=== PATIENT | female | born 1940 | race African-American/Black ===

== ENCOUNTER 2017-06-12 18:27 | Inpatient (IN) ==
--- NOTE | 2017-06-12 16:47 | History and Physical Update ---
Sedation H&P Update - History and Physical H&P was reviewed, the patient examined and there: are no changes in the patients condition since last H&P was completed. - Dictation Physical: refer to scanned H&P - Sedation Plan for Sedation: moderate Patient Consent: Procedure disscussed with patient and patinet has consented., Risks and benefits were discussed with patient,including infection,, bleeding, injury to surrounding structures, seizure, temporary nerve, Patient understands and accepts potential risks/benefits and agrees to, proceed. ASA Class: IV Airway Assessment: Class III: Soft palate, base of uvula visible
--- NOTE | 2017-06-12 17:45 | Cardiac Catheterization ---
Date of Procedure:: 06/12/17 Pre-op Diagnosis: Bilateral primary branch pulmonary emboli for ekos catheter placement Post-op diagnosis: same Procedure: Description of procedure: Procedure performed: 1: Bilateral ekos catheter placement right and left pulmonary artery Description of procedure: After obtaining informed consent the patient was brought to the [facility] with a right groin was prepped and draped in the usual sterile manner. After local infiltration of anesthetic and intravenous sedation a needle stick was made to the right femoral vein and a 12 Urdu venous sheath with two hemostatic ports was placed in the right femoral vein. Using a angled pigtail catheter and a J- wire the left main pulmonary artery was wired and the wire was extended to a segmental pulmonary artery on the left. This wire was maintained in place while the pigtail catheter was removed from the wire and an infusion catheter was advanced over the wire and positioned with its tip in a distal segmental pulmonary artery. This catheter was then connected to coolant infusion. Next using the other hemostatic access a second J-wire was placed using a angled pigtail catheter and positioned with its tip in a segmental right pulmonary artery. An infusion catheter was advanced over this J-wire and it was placed in the segmental right pulmonary artery. At this point tPA was infused in both the right and left drug ports. Next the ultrasound wires were placed through the coolant sheaths for both the right and left sides. Fluoroscopy confirmed good positioning and coolant was infusing as well as tPA. The patient remained hemodynamically stable and was transferred to the intensive care unit in stable condition. Please see the orders related to drug dosing and infusion sites. There were no immediate complications encountered. Anesthesia: moderate conscious sedation Surgeon / Physician: James Montes Estimated blood loss: minimal Specimens: none sent Condition: critical Disposition: ICU/CCU - Medications / Follow-up
--- NOTE | 2017-06-12 18:05 | Cardiology History & Physical ---
Assessment and Plan (1) Acute pulmonary embolus Status: Acute Assessment and plan: Patient is undergone placement of bilateral infusion catheters and is clinically hemodynamically stable with complaints of left-sided chest pain which I think it is related to pulmonary infarction. She will be watched closely for evidence of hypotension or hemodynamic compromise. She is clinically stable currently. (2) Right ventricular enlargement Status: Acute (3) Atrial fibrillation Status: Acute Assessment and plan: Patient is in atrial fibrillation currently possibly related to pulmonary thromboembolic disease. She will be monitored related to her rate. (4) Rheumatoid arthritis Status: Acute (5) Systemic hypertension Status: Acute (6) Pericardial effusion without cardiac tamponade Status: Acute History of Present Illness Chief complaint: Right ventricular enlargement pulmonary thromboembolic disease by CT History of present illness: Ms. Hartley is a 76 year old female who has a history of hypertension dyslipidemia hypothyroidism history of onset of dyspnea. She had just started colchicine and said it was making her sick she came in with low oxygen saturations. She was noted to have a high d-dimer and was taken to CT scan where it showed bilateral large segmental pulmonary thromboembolic disease. She was referred here for TNKase infusion with ekos catheter. She has no prior history of myocardial infarction or jarrett congestive heart failure. She has rheumatoid arthritis and is being seen by human resources representative in [place]. She does not give me a history of syncope or palpitations. I am not certain as to whether she has chronic atrial fibrillation but she is in atrial fibrillation on presentation here. He has had no recent fever chills cough or sputum. She is admitted now post echoes catheter placement for close monitoring. I have explained our treatment plans with the patient and with her family. Cardiology Physical Exam - Constitutional Exam: Physical examination: General: The patient is awake and alert complaining of left-sided chest pain which is pleuritic in nature. She is oriented -3. Mood and affect are normal. HEENT: Normocephalic, sclera are clear there are no lid xanthelasmas noted. Oral mucosa is free of cyanosis or pallor. Neck: The neck is supple without JVD. Carotid upstrokes are normal volume and amplitude. There is no audible bruit. There is no palpable thyroid. Trachea is midline. Chest: Lungs: The patient is comfortable at rest without intercostal retractions or abdominal breathing. There are decreased breath sounds at the bases bilaterally worse on the left there are no adventitial sounds rales rubs rhonchi or wheezes noted. Cardiovascular: The PMI is nondisplaced. No palpable thrill S3 or S4. There is a regular rate and rhythm with no murmur rub or gallop noted. Dorsalis pedis posterior tibial are 1+ and equal and femoral pulses are 2+ and equal bilaterally. Abdomen: Abdomen is soft and nontender with normal active bowel sounds. There is no palpable mass or organomegaly noted. There is no midline bruit. Extremities exam: There is no cyanosis clubbing or edema. Skin: Skin is warm and dry without ecchymosis or urticaria or skin rash. There are no palpable nodules. Musculoskeletal: There is no kyphosis or scoliosis noted.
[~2017-06-12 18:27] MED LIST: ALTEPLASE 12 MG in SODIUM CHLORIDE 0.9% 240 ML IV SCH; ALTEPLASE 2 MG VIAL ONE; ENOXAPARIN 60 MG/0.6 ML SYRINGE ONE; HEPARIN DRIP 25,000 UNITS/500 ML PREMIX IV SCH; SODIUM CHLORIDE 0.9% 1,000 ML IV SCH; fentaNYL 100 MCG/2 ML VIAL ONE
[2017-06-12 19:27] LABS: Basophils % 0.4 % (0.0-0.8); Hematocrit 36.6 VOL% (35.7-47.0); Hemoglobin 11.8 GM/DL (12.0-16.0); Immature Granulocytes % 0.3 %; Immature Granulocytes Absolute 0.02 #; Lymphocytes % 42.1 % (21.3-54.2); Mean Corpuscular HGB Conc 32.2 GM/DL (32-36); Mean Corpuscular Hemoglobin 26 PG (27-34); Mean Corpuscular Volume 81.3 FL (87-102); Mean Platelet Volume 9.4 FL (9.6-12.0); Monocytes # 0.5 10*3/uL (0.11-0.8); Monocytes % 6.5 % (1.7-12.7); Neutrophils # 3.6 10*3/uL (1.4-7.4); Neutrophils % 50.7 % (38.7-73.9); Platelet Count 182 T/CUMM (130-400); Red Cell Distribution Width 15.4 % (9.3-17.3); White Blood Count 7.1 T/CUMM (4-12)
[2017-06-12 19:40] LABS: INR 1.2; PT Patient Result 12.7 SECS; Partial Thromboplastin Time 37.3 SECS (0-40)
[2017-06-12] MEDS: ONDANSETRON 4 MG/2 ML VIAL IV PRN (19:54)
[2017-06-12] MEDS: MORPHINE 2 MG/1 ML SYRINGE IV PRN (19:54)
[2017-06-12 21:03] LABS: Apearance,Urine CLEAR (Clear); Bacteria,Urine Occasional /HPF (Few); Bilirubin,Urine Negative (Negative); Blood, Urine Negative (Negative); Glucose,Urine (UA) Negative (Negative); Ketones,Urine Negative (Negative); Nitrite,Urine Negative (Negative); Protein,Urine Negative; RBC,Urine 4 /HPF (0-4); Squamous Epithelial Cell,Urine Occasional /HPF (0-10); Urine Color Yellow (Yellow); Urine Specific Gravity 1.031 (1.001-1.035); Urine Urobilinogen < 2.0 EU/DL (0.2-1.0); WBC,Urine <1 /HPF (0-6)
[2017-06-13 03:49] LABS: Basophils % 0.4 % (0.0-0.8); Hematocrit 33.4 VOL% (35.7-47.0); Hemoglobin 10.7 GM/DL (12.0-16.0); Immature Granulocytes % 0.4 %; Immature Granulocytes Absolute 0.03 #; Lymphocytes # 3.3 10*3/uL (1.4-4.0); Lymphocytes % 46.5 % (21.3-54.2); Mean Corpuscular Hemoglobin 26 PG (27-34); Mean Corpuscular Volume 81.7 FL (87-102); Mean Platelet Volume 9.4 FL (9.6-12.0); Monocytes # 0.5 10*3/uL (0.11-0.8); Monocytes % 6.3 % (1.7-12.7); Neutrophils # 3.3 10*3/uL (1.4-7.4); Neutrophils % 46.4 % (38.7-73.9); Platelet Count 173 T/CUMM (130-400); Red Blood Count 4.09 MC/CUMM (3.8-5.5); Red Cell Distribution Width 15.2 % (9.3-17.3); White Blood Count 7.2 T/CUMM (4-12)
[2017-06-13 04:26] LABS: Albumin 2.5 G/DL (3.4-5.0); Bilirubin,Total 0.9 MG/DL (0.2-1.0); Calcium 8.4 MG/DL (8.5-10.1); Osmolality,Calculated 278.5 MOS/KG (273-304); Potassium 3.7 MMOL/L (3.5-5.1); Total Protein 5.9 G/DL (6.4-8.3)
[2017-06-13 04:54] LABS: INR 1.2; PT Patient Result 12.8 SECS
[2017-06-13] MEDS: MORPHINE 2 MG/1 ML SYRINGE IV PRN ×2 (06:05→09:06)
[2017-06-13 07:10] LABS: Partial Thromboplastin Time 79.8 SECS (0-40)
--- NOTE | 2017-06-13 07:22 | EKG Report ---
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
--- NOTE | 2017-06-13 09:00 | Cardiology Progress Note ---
<Luis E Haley E - Last Filed: 06/13/17 09:00> Cardiology - PN: Subj Interval history: LUIS E TO COMPLETE Ms. Hartley is a 76 year old female who has a history of hypertension dyslipidemia hypothyroidism history of onset of dyspnea. She had just started colchicine and said it was making her sick she came in with low oxygen saturations. She was noted to have a high d-dimer and was taken to CT scan where it showed bilateral large segmental pulmonary thromboembolic disease. She was referred here for TNKase infusion with ekos catheter. She has no prior history of myocardial infarction or jarrett congestive heart failure. 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 She does not give me a history of syncope or palpitations. I am not certain as to whether she has chronic atrial fibrillation but she is in atrial fibrillation on presentation here. He has had no recent fever chills cough or sputum. She is admitted now post echoes catheter placement for close monitoring. I have explained our treatment plans with the patient and with her family.Procedure performed: 1: Bilateral ekos catheter placement right and left pulmonary artery Exam (Progress Note) - Constitutional Vitals: Period Temp Pulse Resp BP Sys/Escalera Pulse Ox Last 24 Hr 97.0 F-97.5 F 70-99 13-23 96-142/57-83 95-100 Result/EKG - Labs CBC & BMP: 06/13/17 03:43 06/13/17 03:43 Labs: Laboratory Results - last 24 hr 06/12/17 06/12/17 06/12/17 19:18 19:18 20:30 WBC 7.1 RBC 4.50 Hgb 11.8 L Hct 36.6 MCV 81.3 L MCH 26 L MCHC 32.2 RDW 15.4 Plt Count 182 MPV 9.4 L Neut % (Auto) 50.7 Lymph % (Auto) 42.1 [place] % (Auto) 6.5 Eos % (Auto) 0.0 Baso % (Auto) 0.4 Neut # (Auto) 3.6 Lymph # (Auto) 3.0 [place] # (Auto) 0.5 Eos # (Auto) 0.0 Baso # (Auto) 0.0 Immature Gran % 0.3 Nucleated RBC % 0.0 Immature Gran # 0.02 Nucleated RBCs # 0.00 Immature Plt Fraction 0.0 INR 1.2 PT Patient/Control Mix 12.7 Fibrinogen 319 Circ Anticoag PTT 37.3 Sodium Potassium Chloride Carbon Dioxide Anion Gap BUN Creatinine GFR Calculation BUN/Creatinine Ratio Glucose Calculated Osmolality Calcium Total Bilirubin AST ALT Alkaline Phosphatase Total Protein Albumin Globulin Albumin/Globulin Ratio Urine Color Yellow Urine Appearance Clear Urine pH 6.0 Ur Specific [place] 1.031 Urine Protein Negative Urine Glucose (UA) Negative Urine Ketones Negative Urine Blood Negative Urine Nitrate Negative Urine Bilirubin Negative Urine Urobilinogen < 2.0 H Urine Leukocytes Negative Urine RBC 4 Urine WBC <1 Ur Squamous Epith Cells Occasional Urine Bacteria Occasional Ur Culture Indicated? Not indicated 06/13/17 06/13/17 06/13/17 03:43 03:43 03:43 WBC 7.2 RBC 4.09 Hgb 10.7 L Hct 33.4 L MCV 81.7 L MCH 26 L MCHC 32.0 RDW 15.2 Plt Count 173 MPV 9.4 L Neut % (Auto) 46.4 Lymph % (Auto) 46.5 [place] % (Auto) 6.3 Eos % (Auto) 0.0 Baso % (Auto) 0.4 Neut # (Auto) 3.3 Lymph # (Auto) 3.3 [place] # (Auto) 0.5 Eos # (Auto) 0.0 Baso # (Auto) 0.0 Immature Gran % 0.4 Nucleated RBC % 0.0 Immature Gran # 0.03 Nucleated RBCs # 0.00 Immature Plt Fraction 0.0 INR 1.2 PT Patient/Control Mix 12.8 Fibrinogen Circ Anticoag PTT Sodium 139 Potassium 3.7 Chloride 103 Carbon Dioxide 29 Anion Gap 10.7 BUN 16 Creatinine 0.80 GFR Calculation 105 BUN/Creatinine Ratio 20.00 Glucose 109 H Calculated Osmolality 278.5 Calcium 8.4 L Total Bilirubin 0.90 AST 23 ALT 29 Alkaline Phosphatase 76 Total Protein 5.9 L Albumin 2.5 L Globulin 3.4 Albumin/Globulin Ratio 0.7 L Urine Color Urine Appearance Urine pH Ur Specific [place] Urine Protein Urine Glucose (UA) Urine Ketones Urine Blood Urine Nitrate Urine Bilirubin Urine Urobilinogen Urine Leukocytes Urine RBC Urine WBC Ur Squamous Epith Cells Urine Bacteria Ur Culture Indicated? 06/13/17 06:43 WBC RBC Hgb Hct MCV MCH MCHC RDW Plt Count MPV Neut % (Auto) Lymph % (Auto) [place] % (Auto) Eos % (Auto) Baso % (Auto) Neut # (Auto) Lymph # (Auto) [place] # (Auto) Eos # (Auto) Baso # (Auto) Immature Gran % Nucleated RBC % Immature Gran # Nucleated RBCs # Immature Plt Fraction INR PT Patient/Control Mix Fibrinogen 326 Circ Anticoag PTT 79.8 H D Sodium Potassium Chloride Carbon Dioxide Anion Gap BUN Creatinine GFR Calculation BUN/Creatinine Ratio Glucose Calculated Osmolality Calcium Total Bilirubin AST ALT Alkaline Phosphatase Total Protein Albumin Globulin Albumin/Globulin Ratio Urine Color Urine Appearance Urine pH Ur Specific [place] Urine Protein Urine Glucose (UA) Urine Ketones Urine Blood Urine Nitrate Urine Bilirubin Urine Urobilinogen Urine Leukocytes Urine RBC Urine WBC Ur Squamous Epith Cells Urine Bacteria Ur Culture Indicated? <James Montes - Last Filed: 06/13/17 11:35> Assessment and Plan (1) Acute pulmonary embolus Status: Acute Current Visit: Yes (2) Right ventricular enlargement Status: Acute Current Visit: Yes (3) Atrial fibrillation Status: Acute Current Visit: Yes (4) Rheumatoid arthritis Status: Acute Current Visit: Yes (5) Systemic hypertension Status: Acute Current Visit: Yes (6) Pericardial effusion without cardiac tamponade Status: Acute Current Visit: Yes Cardiology - PN: Subj Interval history: Patient is hemodynamic with stable doing well without any problems. Her hematocrit is stable. She has had some minimal ooze from the catheter entry site but is otherwise without complaints or problems today. Her blood pressure is reasonable although still on the high side and we will adjust her meds. I have discussed in detail the particulars of this case and I have examined the patient and reviewed the patient's chart both current and old. I was directly involved in the patient's evaluation and management and I completely agree with Luis E Haley NP regarding this patient's evaluation and treatment plan. Exam (Progress Note) - Constitutional Vitals: Period Temp Pulse Resp BP Sys/Escalera Pulse Ox Last 24 Hr 97.0 F-97.9 F 63-99 13-23 96-150/57-83 95-100 Result/EKG - Labs CBC & BMP: 06/13/17 03:43 06/13/17 03:43 Labs: Laboratory Results - last 24 hr 06/12/17 06/12/17 06/12/17 19:18 19:18 20:30 WBC 7.1 RBC 4.50 Hgb 11.8 L Hct 36.6 MCV 81.3 L MCH 26 L MCHC 32.2 RDW 15.4 Plt Count 182 MPV 9.4 L Neut % (Auto) 50.7 Lymph % (Auto) 42.1 [place] % (Auto) 6.5 Eos % (Auto) 0.0 Baso % (Auto) 0.4 Neut # (Auto) 3.6 Lymph # (Auto) 3.0 [place] # (Auto) 0.5 Eos # (Auto) 0.0 Baso # (Auto) 0.0 Immature Gran % 0.3 Nucleated RBC % 0.0 Immature Gran # 0.02 Nucleated RBCs # 0.00 Immature Plt Fraction 0.0 INR 1.2 PT Patient/Control Mix 12.7 Fibrinogen 319 Circ Anticoag PTT 37.3 Sodium Potassium Chloride Carbon Dioxide Anion Gap BUN Creatinine GFR Calculation BUN/Creatinine Ratio Glucose Calculated Osmolality Calcium Total Bilirubin AST ALT Alkaline Phosphatase Total Protein Albumin Globulin Albumin/Globulin Ratio Urine Color Yellow Urine Appearance Clear Urine pH 6.0 Ur Specific [place] 1.031 Urine Protein Negative Urine Glucose (UA) Negative Urine Ketones Negative Urine Blood Negative Urine Nitrate Negative Urine Bilirubin Negative Urine Urobilinogen < 2.0 H Urine Leukocytes Negative Urine RBC 4 Urine WBC <1 Ur Squamous Epith Cells Occasional Urine Bacteria Occasional Ur Culture Indicated? Not indicated 06/13/17 06/13/17 06/13/17 03:43 03:43 03:43 WBC 7.2 RBC 4.09 Hgb 10.7 L Hct 33.4 L MCV 81.7 L MCH 26 L MCHC 32.0 RDW 15.2 Plt Count 173 MPV 9.4 L Neut % (Auto) 46.4 Lymph % (Auto) 46.5 [place] % (Auto) 6.3 Eos % (Auto) 0.0 Baso % (Auto) 0.4 Neut # (Auto) 3.3 Lymph # (Auto) 3.3 [place] # (Auto) 0.5 Eos # (Auto) 0.0 Baso # (Auto) 0.0 Immature Gran % 0.4 Nucleated RBC % 0.0 Immature Gran # 0.03 Nucleated RBCs # 0.00 Immature Plt Fraction 0.0 INR 1.2 PT Patient/Control Mix 12.8 Fibrinogen Circ Anticoag PTT Sodium 139 Potassium 3.7 Chloride 103 Carbon Dioxide 29 Anion Gap 10.7 BUN 16 Creatinine 0.80 GFR Calculation 105 BUN/Creatinine Ratio 20.00 Glucose 109 H Calculated Osmolality 278.5 Calcium 8.4 L Total Bilirubin 0.90 AST 23 ALT 29 Alkaline Phosphatase 76 Total Protein 5.9 L Albumin 2.5 L Globulin 3.4 Albumin/Globulin Ratio 0.7 L Urine Color Urine Appearance Urine pH Ur Specific [place] Urine Protein Urine Glucose (UA) Urine Ketones Urine Blood Urine Nitrate Urine Bilirubin Urine Urobilinogen Urine Leukocytes Urine RBC Urine WBC Ur Squamous Epith Cells Urine Bacteria Ur Culture Indicated? 06/13/17 06:43 WBC RBC Hgb Hct MCV MCH MCHC RDW Plt Count MPV Neut % (Auto) Lymph % (Auto) [place] % (Auto) Eos % (Auto) Baso % (Auto) Neut # (Auto) Lymph # (Auto) [place] # (Auto) Eos # (Auto) Baso # (Auto) Immature Gran % Nucleated RBC % Immature Gran # Nucleated RBCs # Immature Plt Fraction INR PT Patient/Control Mix Fibrinogen 326 Circ Anticoag PTT 79.8 H D Sodium Potassium Chloride Carbon Dioxide Anion Gap BUN Creatinine GFR Calculation BUN/Creatinine Ratio Glucose Calculated Osmolality Calcium Total Bilirubin AST ALT Alkaline Phosphatase Total Protein Albumin Globulin Albumin/Globulin Ratio Urine Color Urine Appearance Urine pH Ur Specific [place] Urine Protein Urine Glucose (UA) Urine Ketones Urine Blood Urine Nitrate Urine Bilirubin Urine Urobilinogen Urine Leukocytes Urine RBC Urine WBC Ur Squamous Epith Cells Urine Bacteria Ur Culture Indicated?
[2017-06-13] MEDS: RIVAROXABAN 15 MG TABLET PO SCH ×2 (09:06→17:05)
--- NOTE | 2017-06-13 11:36 | Event Note ---
Ekos catheters pulled from the 12 [place] venous sheath without difficulty. No rhythm issues or complaints of pain post procedure noted. Venous sheath to be pulled within the hour.
[2017-06-13] MEDS ORDERED: BISACODYL 5 MG TABLET PO ONE (16:49)
[2017-06-13] MEDS: VALSARTAN 80 MG TABLET PO SCH (17:05)
[2017-06-13] MEDS: PANTOPRAZOLE 40 MG TABLET PO SCH (17:05)
[2017-06-13] MEDS: hydroCHLOROthiazide 25 MG TABLET PO SCH (17:05)
[2017-06-13] MEDS: ONDANSETRON 4 MG/2 ML VIAL IV PRN (17:34)
[2017-06-13] MEDS: SIMVASTATIN 40 MG TABLET PO SCH (19:21)
[2017-06-13] MEDS: CETIRIZINE 10 MG TABLET PO SCH (20:17)
[2017-06-14 04:15] LABS: Basophils % 0.3 % (0.0-0.8); Hematocrit 32.9 VOL% (35.7-47.0); Hemoglobin 10.4 GM/DL (12.0-16.0); Immature Granulocytes % 0.5 %; Immature Granulocytes Absolute 0.04 #; Lymphocytes # 1.8 10*3/uL (1.4-4.0); Lymphocytes % 23.2 % (21.3-54.2); Mean Corpuscular HGB Conc 31.6 GM/DL (32-36); Mean Corpuscular Hemoglobin 26 PG (27-34); Mean Corpuscular Volume 82.7 FL (87-102); Mean Platelet Volume 9.5 FL (9.6-12.0); Monocytes # 0.7 10*3/uL (0.11-0.8); Monocytes % 8.3 % (1.7-12.7); Neutrophils # 5.3 10*3/uL (1.4-7.4); Neutrophils % 67.7 % (38.7-73.9); Platelet Count 167 T/CUMM (130-400); Red Blood Count 3.98 MC/CUMM (3.8-5.5); Red Cell Distribution Width 15.2 % (9.3-17.3); White Blood Count 7.8 T/CUMM (4-12)
[2017-06-14 04:41] LABS: Calcium 8.3 MG/DL (8.5-10.1); Magnesium 1.8 MG/DL (1.8-2.4); Osmolality,Calculated 268.2 MOS/KG (273-304); Potassium 3.6 MMOL/L (3.5-5.1)
--- NOTE | 2017-06-14 07:30 | EKG Report ---
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
[2017-06-14] MEDS: RIVAROXABAN 15 MG TABLET PO SCH ×2 (08:38→16:40)
[2017-06-14] MEDS: POTASSIUM CHLORIDE 8 MEQ CAPSULE PO SCH (08:38)
[2017-06-14] MEDS: hydroCHLOROthiazide 25 MG TABLET PO SCH (08:38)
[2017-06-14] MEDS: VALSARTAN 80 MG TABLET PO SCH (08:39)
[2017-06-14] MEDS: LEVOTHYROXINE 50 MCG TABLET PO SCH (08:39)
[2017-06-14] MEDS: DOXAZOSIN 4 MG TABLET PO SCH (08:39)
[2017-06-14] MEDS: MULTIVITAMIN (CENTRUM) TABLET PO SCH (08:39)
[2017-06-14] MEDS: PANTOPRAZOLE 40 MG TABLET PO SCH (08:39)
[2017-06-14] MEDS: CETIRIZINE 10 MG TABLET PO SCH ×3 (08:39→21:48)
--- NOTE | 2017-06-14 09:22 | Cardiology Progress Note ---
<Kelsie Haley E - Last Filed: 06/14/17 09:05> Assessment and Plan - Time spent with patient Time spent with patient: Greater than 30 minutes (1) Acute pulmonary embolus Status: Acute Assessment and plan: SEE PLAN OF CARE LISTED BELOW Current Visit: Yes (2) Right ventricular enlargement Status: Acute Assessment and plan: SEE PLAN OF CARE LISTED BELOW Current Visit: Yes (3) Atrial fibrillation Status: Acute Assessment and plan: SEE PLAN OF CARE LISTED BELOW Current Visit: Yes Qualifiers: Atrial fibrillation type: unspecified Qualified Code(s): I48.91 - Unspecified atrial fibrillation (4) Rheumatoid arthritis Status: Chronic Assessment and plan: SEE PLAN OF CARE LISTED BELOW Current Visit: Yes (5) Systemic hypertension Status: Chronic Assessment and plan: SEE PLAN OF CARE LISTED BELOW Current Visit: Yes (6) Dyslipidemia Status: Chronic Assessment and plan: SEE PLAN OF CARE LISTED BELOW Current Visit: Yes Cardiology - PN: Subj 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 Hartley, 76BF, arrived June 12, 2017 in transfer for treatment of bilateral large segmental pulmonary thromboembolic disease. She underwent emergent TNKase infusion with EKOs catheter. She tolerated the procedure well and without complication and has been housed in CCU in stable condition. Patient previously underwent Lexiscan stress testing at [facility] September 12, 2013 and received favorable results. No known prior history of coronary artery disease. JUNE 14, 2017: She has been doing well overnight. She is very thankful. Patient remains in atrial fibrillation, suspect this may be a new diagnosis but she is uncertain. Echocardiogram is pending. Vital signs are stable. At this time, she is doing well on Xarelto, labs stable. Patient would like to have her catheter removed and I think this is reasonable. Transfer to telemetry, have physical therapy work with her. Hopefully, she will be ready for discharge possibly tomorrow. Will further discuss with Dr. Montes and await additional recommendations. ASSESSMENT/PLAN: 1. ACUTE PULONARY EMBOLISM - now S/P EKOS, on Xarelto. Labs are stable. Overall she is feeling much better. 2. HYPERTENSION - continue with Diovan. Will add low-dose beta-andres as her heart rate has been varying from 70s to low 100s 3. DYSLIPIDEMIA - fasting lipid profile pending. Continue Simvastatin. 4. ATRIAL FIBRILLATION - uncertain if this is a new diagnosis or chronic condition. However, she is on Xarelto for stroke prevention now. Adding low- dose beta-andres today. 5. RIGHT VENTRICULAR ENLARGEMENT - stable 6. RHEUMATOID ARTHRITIS - continue current plan of care. Exam (Progress Note) - Constitutional Vitals: Period Temp Pulse Resp BP Sys/Escalera Pulse Ox Last 24 Hr 97.2 F-97.9 F 53-101 15-22 108-184/55-83 92-99 Exam: General: [Appears well with no apparent distress.] [Pleasant and cooperative. ] [Appears comfortable.] HEENT: [Bilateral arcus, normocephalic, atraumatic. Mucous membranes moist. No jaundice noted. Conjunctiva moist and clear, sclerae anicteric] Neck: No obvious JVD/HJR, no thyromegaly or lymphadenopathy noted. No carotid bruit appreciated Cardiac: [Irregularly irregular rhythm, controlled rate] [No murmur rub or gallop.] Lungs: [Clear to auscultation without accessory muscle use to assist the respiratory pattern.] Using oxygen intermittently Abdomen: Soft, bowel sounds normoactive. Nontender and nondistended. No abdominal bruit or thrill noted. No masses noted. Musculoskeletal: No fluid collection. Decreased range of motion is noted. Extremities: Right groin soft, free of hematoma or bruit. No clubbing, cyanosis noted. [ No edema noted.] Upper extremity pulses 2+. Lower extremity pulses 2+. Capillary refill less than 3 seconds. Skin: No unusual lesions or rashes. No skin breakdown appreciated. Neuro: Awake, alert and oriented 3. Moves all extremities well without hemiparesis or paralysis. No essential tremor is appreciated. Result/EKG - Labs CBC & BMP: 06/14/17 03:49 06/14/17 03:49 Lab Results: I have reviewed the past 24 hour labs Labs: Laboratory Results - last 24 hr 06/13/17 06/14/17 06/14/17 18:10 03:49 03:49 WBC 7.8 RBC 3.98 Hgb 10.4 L Hct 32.9 L MCV 82.7 L MCH 26 L MCHC 31.6 L RDW 15.2 Plt Count 167 MPV 9.5 L Neut % (Auto) 67.7 Lymph % (Auto) 23.2 [place] % (Auto) 8.3 Eos % (Auto) 0.0 Baso % (Auto) 0.3 Neut # (Auto) 5.3 Lymph # (Auto) 1.8 [place] # (Auto) 0.7 Eos # (Auto) 0.0 Baso # (Auto) 0.0 Immature Gran % 0.5 Nucleated RBC % 0.0 Immature Gran # 0.04 Nucleated RBCs # 0.00 Immature Plt Fraction 0.0 Fibrinogen 394 Circ Anticoag PTT 28.0 D Sodium 134 L Potassium 3.6 Chloride 97 L Carbon Dioxide 34 H Anion Gap 6.6 BUN 13 Creatinine 0.70 GFR Calculation 124 BUN/Creatinine Ratio 18.00 Glucose 114 H Calculated Osmolality 268.2 L Calcium 8.3 L Magnesium 1.8 06/14/17 06:40 WBC RBC Hgb Hct MCV MCH MCHC RDW Plt Count MPV Neut % (Auto) Lymph % (Auto) [place] % (Auto) Eos % (Auto) Baso % (Auto) Neut # (Auto) Lymph # (Auto) [place] # (Auto) Eos # (Auto) Baso # (Auto) Immature Gran % Nucleated RBC % Immature Gran # Nucleated RBCs # Immature Plt Fraction Fibrinogen 416 H Circ Anticoag PTT 37.0 D Sodium Potassium Chloride Carbon Dioxide Anion Gap BUN Creatinine GFR Calculation BUN/Creatinine Ratio Glucose Calculated Osmolality Calcium Magnesium - EKG EKG results: interpreted by me EKG shows: atrial fibrillation <James Montes - Last Filed: 06/14/17 13:51> Assessment and Plan (1) Acute pulmonary embolus Status: Acute Current Visit: Yes (2) Right ventricular enlargement Status: Acute Current Visit: Yes (3) Atrial fibrillation Status: Acute Current Visit: Yes Qualifiers: Atrial fibrillation type: unspecified Qualified Code(s): I48.91 - Unspecified atrial fibrillation (4) Rheumatoid arthritis Status: Chronic Current Visit: Yes (5) Systemic hypertension Status: Chronic Current Visit: Yes (6) Pericardial effusion without cardiac tamponade Status: Acute Current Visit: Yes Cardiology - PN: Subj Interval history: This patient has a history of bilateral pulmonary thromboembolic disease and is done well. Her echo is for review. My plan will be to discharge her home tomorrow. We are trying to increase her activities through today. I have discussed in detail the particulars of this case and I have examined the patient and reviewed the patient's chart both current and old. I was directly involved in the patient's evaluation and management and I completely agree with Kelsie Haley NP regarding this patient's evaluation and treatment plan. Exam (Progress Note) - Constitutional Vitals: Period Temp Pulse Resp BP Sys/Escalera Pulse Ox Last 24 Hr 97.2 F-97.8 F 53-101 15- 101-184/54-83 92-99 Result/EKG - Labs CBC & BMP: 06/14/17 03:49 06/14/17 03:49 Labs: Laboratory Results - last 24 hr 06/13/17 06/14/17 06/14/17 18:10 03:49 03:49 WBC 7.8 RBC 3.98 Hgb 10.4 L Hct 32.9 L MCV 82.7 L MCH 26 L MCHC 31.6 L RDW 15.2 Plt Count 167 MPV 9.5 L Neut % (Auto) 67.7 Lymph % (Auto) 23.2 [place] % (Auto) 8.3 Eos % (Auto) 0.0 Baso % (Auto) 0.3 Neut # (Auto) 5.3 Lymph # (Auto) 1.8 [place] # (Auto) 0.7 Eos # (Auto) 0.0 Baso # (Auto) 0.0 Immature Gran % 0.5 Nucleated RBC % 0.0 Immature Gran # 0.04 Nucleated RBCs # 0.00 Immature Plt Fraction 0.0 Fibrinogen 394 Circ Anticoag PTT 28.0 D Sodium 134 L Potassium 3.6 Chloride 97 L Carbon Dioxide 34 H Anion Gap 6.6 BUN 13 Creatinine 0.70 GFR Calculation 124 BUN/Creatinine Ratio 18.00 Glucose 114 H Calculated Osmolality 268.2 L Calcium 8.3 L Magnesium 1.8 Triglycerides Cholesterol LDL Cholesterol VLDL Cholesterol HDL Cholesterol Heart Disease Risk Ratio 06/14/17 06/14/17 03:49 06:40 WBC RBC Hgb Hct MCV MCH MCHC RDW Plt Count MPV Neut % (Auto) Lymph % (Auto) [place] % (Auto) Eos % (Auto) Baso % (Auto) Neut # (Auto) Lymph # (Auto) [place] # (Auto) Eos # (Auto) Baso # (Auto) Immature Gran % Nucleated RBC % Immature Gran # Nucleated RBCs # Immature Plt Fraction Fibrinogen 416 H Circ Anticoag PTT 37.0 D Sodium Potassium Chloride Carbon Dioxide Anion Gap BUN Creatinine GFR Calculation BUN/Creatinine Ratio Glucose Calculated Osmolality Calcium Magnesium Triglycerides 60 Cholesterol 123 LDL Cholesterol 57.0 VLDL Cholesterol 12.0 HDL Cholesterol 56 Heart Disease Risk Ratio 2.20
[2017-06-14 09:34] LABS: Risk Ratio 2.2
[2017-06-14] MEDS: CARVEDILOL 3.125 MG TABLET PO SCH ×2 (09:42→21:49)
[2017-06-14] MEDS ORDERED: SKIN HEALING OINT (AQUAPHOR) 50 GM TUBE TOP PRN (10:54)
--- NOTE | 2017-06-14 13:01 | Ultrasound Report ---
US venous doppler LE BI Indication: Recent PE. Comparison: None. Technique: Grayscale, spectral, and color Doppler interrogation of the bilateral lower extremity veins was performed. Augmentation and compression was performed. Findings: Grayscale, color Doppler, and pulsed Doppler evaluation of the veins of the bilateral lower extremity demonstrates no evidence of deep venous thrombosis. Popliteal cyst demonstrated on the right measuring up to 3.1 x 1.8 x 1.0 cm. IMPRESSION: No evidence of deep venous thrombosis in either lower extremity. PROCEDURE INTERPRETED AT [facility] DEPARTMENT OF RADIOLOGY Final Report Signed by: Dr Lester Lopez
--- NOTE | 2017-06-14 14:13 | ECHO Report ---
Dipti Hartley Exam Date: 06/14/2017 08:58 Referring Physician: Technologist: Juana Hart Age: 76 Ht (in): 69 Wt (lb): 128 Gender: F Exam Location: [facility] Echo Indications: acute pulmonary embolus, s/p EKOS, A fib, arthritis, HTN, R vent enlargement, R/O pericardial eff. BP: 126 / 61 HR: 71 Rhythm: Sinus Technical Quality: Good IMPRESSIONS Normal left ventricular cavity size. Left ventricular ejection fraction is estimated at 60 -65 %. Mildly increased right ventricular size. Moderate - severely increased right atrial size. Normal left atrial size. Mildly thickened mitral valve with mild mitral regurgitation. Mild aortic sclerois without stenosis. Trace aortic valve regurgitation. Morphologically normal tricuspid valve. Trace tricuspid valve regurgitation. Tricuspid regurgitation velocities suggest a PAP of 30.5 mmHg + RAP. Morphologically normal pulmonic valve. No pericardial effusion. Normal size aortic root and proximal ascending aorta. MEASUREMENTS (Male / Female) Normal Values 2D ECHO LV Diastolic Diameter PLAX 4.2 cm 4.2 - 5.9 / 3.9 - 5.3 cm LV Systolic Diameter PLAX 2.5 cm LV Fractional Shortening PLAX 41.1 % IVS Diastolic Thickness 1.0 cm 0.6 - 1.0 / 0.6 - 0.9 cm LVPW Diastolic Thickness 1.2 cm 0.6 - 1.0 / 0.6 - 0.9 cm RV Internal Dim ED PLAX 3.0 cm Aortic Root Diameter 3.0 cm LA Systolic Diameter LX 3.1 cm 3.0 - 4.0 / 2.7 - 3.8 cm DOPPLER TR Peak Velocity 276.0 cm/s TR Peak Gradient 30.5 mmHg FINDINGS Left Ventricle Normal left ventricular cavity size.left ventricular ejection fraction is estimated at 60 -65 %. Right Ventricle Mildly increased right ventricular size. Right Atrium Moderate - severely increased right atrial size. Left Atrium Normal left atrial size. Mitral Valve Mildly thickened mitral valve with mild mitral regurgitation. Aortic Valve Mild aortic sclerois without stenosis. Trace aortic valve regurgitation. Tricuspid Valve Morphologically normal tricuspid valve. Trace tricuspid valve regurgitation. Tricuspid regurgitation velocities suggest a PAP of 30.5 mmHg + RAP. Pulmonic Valve Morphologically normal pulmonic valve. Pericardium No pericardial effusion. Aorta Normal size aortic root and proximal ascending aorta. James Montes MD (Electronically Signed) Final Date: 14 June 2017 14:12
[2017-06-14] MEDS: SIMVASTATIN 40 MG TABLET PO SCH (18:01)
[2017-06-14 18:08] LABS: Partial Thromboplastin Time 36.9 SECS (0-40)
[2017-06-15] MEDS: MORPHINE 2 MG/1 ML SYRINGE IV PRN (04:40)
[2017-06-15 04:44] LABS: Basophils % 0.1 % (0.0-0.8); Eosinophils # 0.1 10*3/uL (0.0-0.87); Eosinophils % 0.8 % (0.00-10.9); Hematocrit 31.3 VOL% (35.7-47.0); Immature Granulocytes % 0.4 %; Immature Granulocytes Absolute 0.03 #; Lymphocytes # 2.9 10*3/uL (1.4-4.0); Lymphocytes % 37.9 % (21.3-54.2); Mean Corpuscular HGB Conc 31.9 GM/DL (32-36); Mean Corpuscular Hemoglobin 27 PG (27-34); Mean Corpuscular Volume 83.2 FL (87-102); Mean Platelet Volume 9.5 FL (9.6-12.0); Monocytes # 0.6 10*3/uL (0.11-0.8); Monocytes % 7.7 % (1.7-12.7); Neutrophils # 4.1 10*3/uL (1.4-7.4); Neutrophils % 53.1 % (38.7-73.9); Platelet Count 152 T/CUMM (130-400); Red Blood Count 3.76 MC/CUMM (3.8-5.5); Red Cell Distribution Width 15.3 % (9.3-17.3); White Blood Count 7.7 T/CUMM (4-12)
[2017-06-15 05:22] LABS: Magnesium 1.9 MG/DL (1.8-2.4); Osmolality,Calculated 276.5 MOS/KG (273-304); Potassium 3.8 MMOL/L (3.5-5.1)
--- NOTE | 2017-06-15 07:34 | EKG Report ---
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
[2017-06-15 07:48] VITALS: BP 138/66
--- NOTE | 2017-06-15 09:29 | Discharge Summary ---
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 Hartley, 76BF, arrived June 12, 2017 in transfer for treatment of bilateral large segmental pulmonary thromboembolic disease. She underwent emergent TNKase infusion with EKOs catheter. She tolerated the procedure well and without complication and has been housed in CCU in stable condition. Patient previously underwent Lexiscan stress testing at [place] September 12, 2013 and received favorable results. No known prior history of coronary artery disease. JUNE 14, 2017: She has been doing well overnight. She is very thankful. Patient remains in atrial fibrillation, suspect this may be a new diagnosis but she is uncertain. Echocardiogram is pending. Vital signs are stable. At this time, she is doing well on Xarelto, labs stable. Patient would like to have her catheter removed and I think this is reasonable. Transfer to telemetry, have physical therapy work with her. Hopefully, she will be ready for discharge possibly tomorrow. Will further discuss with Dr. Montes and await additional recommendations. JUNE 15, 2017: Doing well overnight. Anxious for release home. Dr. Montes has seen patient, evaluated and recommended discharge today. I think that she is met maximal medical therapy, she has been discharged home in stable condition. She will be given a 2 week follow-up with Dr. Montes. At that visit the following will be obtained, BMP, magnesium, CBC and EKG. Discharge medications include the following: Xarelto 15 mg orally twice daily 21 days (new) Xarelto 20 mg orally daily starting the morning of July 06, 2017 Coreg 6.25 mg orally twice daily (new) Valsartan 40 mg orally daily (new dose) Simvastatin 40 mg orally each evening Hand written prescriptions given for these medications as a pharmacy for a electronic email was not listed She will resume her preadmission, noncardiac medications. - Time spent with patient Time with patient DS: Greater than 30 minutes Diagnosis - Discharge Diagnosis (1) Acute pulmonary embolus Status: Resolved (2) Right ventricular enlargement Status: Chronic (3) Atrial fibrillation Status: Chronic (4) Rheumatoid arthritis Status: Chronic (5) Systemic hypertension Status: Chronic (6) Dyslipidemia Status: Chronic Specialty Discharge - Follow Up or Referrals Follow up with: James Montes MD [Physician] - (2 weeks. BMP, magnesium, CBC, EKG) Discharge Plan - Discharge Data Disposition: Disch To Home/Self Care Condition at Discharge: Stable Discharge Diet: advance to your usual diet Activity: resume usual activities as tolerated Hygiene: no restrictions Weight Bearing at Discharge: full weight bearing Driving: no restrictions Contact your physician if you experience:: fever over 101, Difficulty voiding, Redness or swelling, Nausea/Vomiting, Shortness of breath, Bleeding, pain uncontrolled by pain medications - Discharge Medications New Rivaroxaban [Xarelto] 15 mg PO BID W/MEALS #21 tablet Valsartan [Diovan] 40 mg PO DAILY #30 tablet Carvedilol [Coreg] 6.25 mg PO BID #60 tablet Rivaroxaban [Xarelto] 20 mg PO DAILY W/SUPPER #30 tablet Continue Omeprazole 40 mg PO DAILY Cetirizine HCl [Cetirizine Tab] 10 mg PO TID hydroCHLOROthiazide [Hydrochlorothiazide] 1 tablet BID Simvastatin 40 mg PO QPM Potassium Chloride [Klor-Con Sprinkle] 8 meq PO DAILY Multivit-Minerals/Folic/Ginkgo [One Daily For Women 50+ Adv Tb] 1 each PO DAILY Levothyroxine Sodium 50 mcg PO DAILY Doxazosin Mesylate 2 mg PO DAILY Discontinued Aspirin 81 mg PO DAILY Valsartan [Diovan] 80 mg PO DAILY Naproxen Sodium [Aleve] 220 mg PO Q6HR - Follow Up or Referral - Forms/Instructions Exam - Constitutional Vitals: Period Temp Pulse Resp BP Sys/Escalera Pulse Ox Last 24 Hr 98 F-99.1 F 64-90 16-20 98-138/52-67 96-98 Exam: General: [Appears well with no apparent distress.] [Pleasant and cooperative. ] [Appears comfortable.] HEENT: [Bilateral arcus, normocephalic, atraumatic. Mucous membranes moist. No jaundice noted. Conjunctiva moist and clear, sclerae anicteric] Neck: No obvious JVD/HJR, no thyromegaly or lymphadenopathy noted. No carotid bruit appreciated Cardiac: [Irregularly irregular rhythm, controlled rate] [No murmur rub or gallop.] Lungs: [Clear to auscultation without accessory muscle use to assist the respiratory pattern.] Using oxygen intermittently Abdomen: Soft, bowel sounds normoactive. Nontender and nondistended. No abdominal bruit or thrill noted. No masses noted. Musculoskeletal: No fluid collection. Decreased range of motion is noted. Extremities: Right groin soft, free of hematoma or bruit. No clubbing, cyanosis noted. [ No edema noted.] Upper extremity pulses 2+. Lower extremity pulses 2+. Capillary refill less than 3 seconds. Skin: No unusual lesions or rashes. No skin breakdown appreciated. Neuro: Awake, alert and oriented 3. Moves all extremities well without hemiparesis or paralysis. No essential tremor is appreciated. Discharge Results Procedures and tests throughout hospitalization: Pending Orders 06/15/17 18:00 Fibrinogen Q12H Partial Thromboplastin Time Q12H 06/16/17 04:00 BMP w/ Mg [Basic Metabolic Panel w/Mg] IN AM CBC [Comp Blood Count Auto Diff] IN AM Labs on day of discharge: Labs from last 24 hours 06/15/17 06/15/17 06/15/17 04:35 04:35 04:35 WBC 7.7 RBC 3.76 L Hgb 10.0 L Hct 31.3 L MCV 83.2 L MCH 27 MCHC 31.9 L RDW 15.3 Plt Count 152 MPV 9.5 L Neut % (Auto) 53.1 Lymph % (Auto) 37.9 [place] % (Auto) 7.7 Eos % (Auto) 0.8 Baso % (Auto) 0.1 Neut # (Auto) 4.1 Lymph # (Auto) 2.9 [place] # (Auto) 0.6 Eos # (Auto) 0.1 Baso # (Auto) 0.0 Immature Gran % 0.4 Nucleated RBC % 0.0 Immature Gran # 0.03 Nucleated RBCs # 0.00 Immature Plt Fraction 0.0 Fibrinogen 412 H Circ Anticoag PTT 25.0 D Sodium 139 Potassium 3.8 Chloride 102 Carbon Dioxide 33 H Anion Gap 7.8 BUN 12 Creatinine 0.70 GFR Calculation 124 BUN/Creatinine Ratio 17.00 Glucose 102 Calculated Osmolality 276.5 Calcium 8.0 L Magnesium 1.9 Triglycerides Cholesterol LDL Cholesterol VLDL Cholesterol HDL Cholesterol Heart Disease Risk Ratio 06/14/17 06/14/17 17:34 03:49 WBC RBC Hgb Hct MCV MCH MCHC RDW Plt Count MPV Neut % (Auto) Lymph % (Auto) [place] % (Auto) Eos % (Auto) Baso % (Auto) Neut # (Auto) Lymph # (Auto) [place] # (Auto) Eos # (Auto) Baso # (Auto) Immature Gran % Nucleated RBC % Immature Gran # Nucleated RBCs # Immature Plt Fraction Fibrinogen 428 H Circ Anticoag PTT 36.9 Sodium Potassium Chloride Carbon Dioxide Anion Gap BUN Creatinine GFR Calculation BUN/Creatinine Ratio Glucose Calculated Osmolality Calcium Magnesium Triglycerides 60 Cholesterol 123 LDL Cholesterol 57.0 VLDL Cholesterol 12.0 HDL Cholesterol 56 Heart Disease Risk Ratio 2.20 - Imaging and Cardiology Cardiology Procedure: report reviewed by me Procedure: Chest x-ray: report reviewed by me DS: Provider Date of admission: 06/13/17 10:48 Primary care physician: . No PCP Attending physician on admission: James Montes MD Discharging clinician: Kelsie Haley NP Expected date of discharge: 06/15/17
[2017-06-15] MEDS: POTASSIUM CHLORIDE 8 MEQ CAPSULE PO SCH (09:36)
[2017-06-15] MEDS: VALSARTAN 80 MG TABLET PO SCH (09:37)
[2017-06-15] MEDS: MULTIVITAMIN (CENTRUM) TABLET PO SCH (09:37)
[2017-06-15] MEDS: DOXAZOSIN 4 MG TABLET PO SCH (09:37)
[2017-06-15] MEDS: PANTOPRAZOLE 40 MG TABLET PO SCH (09:38)
[2017-06-15] MEDS: hydroCHLOROthiazide 25 MG TABLET PO SCH (09:38)
[2017-06-15] MEDS: RIVAROXABAN 15 MG TABLET PO SCH (09:38)
[2017-06-15] MEDS: CARVEDILOL 3.125 MG TABLET PO SCH (09:38)
[2017-06-15] MEDS: LEVOTHYROXINE 50 MCG TABLET PO SCH (09:39)
[2017-06-15] MEDS: CETIRIZINE 10 MG TABLET PO SCH (09:39)
[2017-06-15] MEDS ORDERED: CARVEDILOL 6.25 MG TABLET PO SCH (21:00)
[2017-06-16] MEDS ORDERED: VALSARTAN 80 MG TABLET PO SCH (09:00)
== END 2017-06-15 12:02 | disposition home or self-care (01) | DRG 176 ==
LOC: N.CL 18:27 → N.CC 18:34 → N.TELEN 06-14 11:16
PROVIDERS: ADMIT Internal Medicine Interventional Cardiology; ATTEND Internal Medicine Interventional Cardiology